=== PATIENT | male | born 1975 | race African-American/Black ===

== ENCOUNTER 2020-02-24 06:51 | Outpatient (RCR) | payer OTHER, SELFPAY ==
[2020-02-24 07:26] LABS: COVID-19 Test Negative (Negative)
[2020-03-09 07:18] LABS: IDNOW Serial# 55D5AD1C
[2020-03-09 07:19] LABS: COVID-19 Test Negative (Negative)
[2020-03-16 07:11] LABS: COVID-19 Test Negative (Negative)
[2020-04-02 13:17] LABS: SARS-COV-2 PCR UMBRL Not Detected
[2020-04-08 12:21] LABS: SARS-COV-2 PCR UMBRL Not Detected
[2020-04-15 10:20] LABS: SARS-COV-2 PCR UMBRL Not Detected
[2020-04-28 09:46] LABS: SARS-COV-2 PCR UMBRL NOT DETECTED
[2020-05-02 09:55] LABS: SARS-COV-2 PCR UMBRL NEGATIVE
== END 2020-02-24 06:52 | disposition home or self-care (01) ==
LOC: HO.EMPCOV 06:51
PROVIDERS: Visit Provider Internal Medicine
DX: Z20.828 Contact with and (suspected) exposure to other viral communicable diseases (principal)
CPT/HCPCS: 36415; 87635; C9803; U0003

== ENCOUNTER 2020-03-02 06:47 | Outpatient (REF) | payer OTHER, SELFPAY ==
[2020-03-02 07:41] LABS: COVID-19 Test Negative (Negative); IDNOW Serial# 55D5AD1C
== END 2020-03-02 06:48 | disposition home or self-care (01) ==
LOC: HO.EMPCOV 06:47
PROVIDERS: Visit Provider Internal Medicine
DX: Z20.828 Contact with and (suspected) exposure to other viral communicable diseases (principal)
CPT/HCPCS: 87635; C9803

== ENCOUNTER 2021-01-06 07:18 | Outpatient (REF) | payer OTHER, SELFPAY ==
[2021-01-06 07:49] LABS: MANUAL DIFF FLAG NO
[2021-01-06 07:58] LABS: Basophils Percent Auto 0.4 % (0-2); Eosinophils Absolute Auto 0.3 X10*3/uL (0.0-0.4); Eosinophils Percent Auto 4.1 % (0-4); Hematocrit 39.6 % (42-52); Hemoglobin 13.1 g/dl (14.0-18.0); Imm Gran Abs Auto 0.02 X10*3/uL (0.00-0.03); Imm Gran Pct Auto 0.3 % (0.0-0.4); Lymphocytes Absolute Auto 2.7 X10*3/uL (1.2-4.9); Lymphocytes Percent Auto 38.8 % (20-40); Mean Corpuscular HGB Conc 33.1 g/dl (31.0-36.0); Mean Corpuscular Hemoglobin 28.9 pg (27.0-33.0); Mean Corpuscular Volume 87.2 fL (80-98); Mean Platelet Volume 10.5 fL (9.4-12.4); Monocytes Absolute Auto 0.4 X10*3/uL (0.1-1.2); Monocytes Percent Auto 5.4 % (2-11); Neutrophils Absolute Auto 3.5 X10*3/uL (2.0-8.3); Platelet Count 246 X10*3/uL (160-400); Red Blood Count 4.54 X10*6/uL (4.60-5.80); Red Cell Distribution Width 12.7 % (11.0-16.0); White Blood Count 6.9 X10*3/uL (4.8-10.8)
[2021-01-06 08:17] LABS: Alanine Aminotransferase 22 U/L (0-40); Albumin Level 4.2 g/dL (3.5-5.0); Alkaline Phosphatase 71 U/L (39-117); Anion Gap 10 (12-20); Aspartate Amino Transferase 26 U/L (5-37); Bilirubin Direct 0.2 mg/dL (0.0-0.5); Bilirubin Total 0.4 mg/dL (0.0-1.0); Blood Urea Nitrogen 20 mg/dL (9-16); Carbon Dioxide 30 mmol/L (22-29); Chloride 104 mmol/L (96-108); Cholesterol 149 mg/dL; Estimated Glomerular Filt Rate > 60; Glucose Fasting 90 mg/dL (60-99); HDL Cholesterol 35 mg/dL; LDL Cholesterol Calculated 104 mg/dl; Sodium 140 mmol/L (135-145); Triglycerides 52 mg/dL
== END 2021-01-06 07:19 | disposition home or self-care (01) ==
LOC: HO.LAB 07:18
PROVIDERS: PCP Internal Medicine; Visit Provider Internal Medicine
DX: Z00.00 Encounter for general adult medical examination without abnormal findings (principal); E78.00 Pure hypercholesterolemia, unspecified; R53.83 Other fatigue
CPT/HCPCS: 36415; 80051; 80061; 80076; 82565; 82947; 84520; 85025

== ENCOUNTER 2021-03-19 12:40 | Outpatient (REF) | payer OTHER, SELFPAY ==
[2021-03-19 13:22] LABS: COVID-19 Test Negative (Negative)
== END 2021-03-19 12:41 | disposition home or self-care (01) ==
LOC: HO.ED 12:40
PROVIDERS: Visit Provider Internal Medicine
DX: Z20.822 Contact with and (suspected) exposure to COVID-19 (principal)
CPT/HCPCS: 36415; 87635

== ENCOUNTER 2022-10-03 15:40 | Outpatient (REF) | payer OTHER, SELFPAY ==
--- NOTE | ~2022-10-03 | XR_ITS ---
EXAMINATION: XR SHOULDER, LEFT CLINICAL INFORMATION: Pain decreased range of motion COMPARISON: None available. TECHNIQUE: AP external rotation, Grashey, scapular Y, and axillary views of the left shoulder. FINDINGS: The bones and soft tissues are normal. No fracture. Glenohumeral and acromioclavicular alignment is anatomic with normal joint space. No abnormal soft tissue calcifications. XR/XR shoulder LT min 2V IMPRESSION: Normal left shoulder.
== END 2022-10-03 15:41 | disposition home or self-care (01) ==
LOC: HO.XRAY 15:40
PROVIDERS: PCP Internal Medicine; Visit Provider Internal Medicine
DX: M25.512 Pain in left shoulder (principal)
CPT/HCPCS: 73030

== ENCOUNTER 2023-01-12 10:05 | Outpatient (REF) | payer OTHER, SELFPAY ==
[2023-01-12 10:34] LABS: MANUAL DIFF FLAG NO
[2023-01-12 11:02] LABS: Basophils Absolute Auto 0.1 X10*3/uL (0.0-0.2); Basophils Percent Auto 0.7 % (0-2); Eosinophils Absolute Auto 0.2 X10*3/uL (0.0-0.4); Eosinophils Percent Auto 2.9 % (0-4); Hemoglobin 15.6 g/dl (14.0-18.0); Imm Gran Abs Auto 0.03 X10*3/uL (0.00-0.03); Imm Gran Pct Auto 0.4 % (0.0-0.4); Lymphocytes Absolute Auto 2.4 X10*3/uL (1.2-4.9); Lymphocytes Percent Auto 33.6 % (20-40); Mean Corpuscular HGB Conc 32.5 g/dl (31.0-36.0); Mean Corpuscular Hemoglobin 28.9 pg (27.0-33.0); Mean Corpuscular Volume 89.1 fL (80.0-98.0); Mean Platelet Volume 10.3 fL (9.4-12.4); Monocytes Absolute Auto 0.4 X10*3/uL (0.1-1.2); Monocytes Percent Auto 5.9 % (2-11); Neutrophils Percent Auto 56.5 % (45-73); Platelet Count 269 X10*3/uL (160-400); Red Blood Count 5.39 X10*6/uL (4.60-5.80); Red Cell Distribution Width 12.4 % (11.0-16.0); White Blood Count 7.2 X10*3/uL (4.8-10.8)
[2023-01-12 11:25] LABS: Alanine Aminotransferase 14 U/L (0-40); Albumin Level 4.4 g/dL (3.5-5.0); Alkaline Phosphatase 81 U/L (39-117); Anion Gap 17 (12-20); Aspartate Amino Transferase 19 U/L (5-37); Bilirubin Total 0.5 mg/dL (0.0-1.0); Blood Urea Nitrogen 18 mg/dL (9-16); Calcium 10.2 mg/dL (8.4-10.2); Carbon Dioxide 26 mmol/L (22-29); Chloride 102 mmol/L (96-108); Estimated Glomerular Filt Rate > 60; Glucose Fasting 89 mg/dL (60-99); Potassium 4.3 mmol/L (3.3-5.1); Sodium 141 mmol/L (135-145)
== END 2023-01-12 10:06 | disposition home or self-care (01) ==
LOC: HO.LAB 10:05
PROVIDERS: PCP Internal Medicine; Visit Provider Internal Medicine
DX: R53.83 Other fatigue (principal); D64.9 Anemia, unspecified
CPT/HCPCS: 36415; 80053; 85025

== ENCOUNTER 2023-01-17 09:19 | Outpatient (AMB) | payer OTHER, SELFPAY ==
--- NOTE | 2023-01-17 09:27 | MHC.OFFVIS ---
Intake Vital Signs 01/17/23 09:29 Height 6 ft Weight 315 lb 4.176 oz BMI 42.8 BP 135/74 Blood Pressure Location Lt brachial Position Sitting Pulse 61 Intake Visit Reasons: Rectal bleeding Intake Note: Doug presents in the office as a new patient for Rectal Bleeding. CC: He states that he is here today for Rectal Bleeding. No irregular bowel movements - he states that he is very regulat and no pains in the stomach. He states it was bright red but it has subsided. It went on for 1-2 days and then it stopped and happened again 3 days later and then it stopped. Allergies amoxicillin [AMOXICILLIN] Allergy (Unknown, Unverified 01/17/23 09:30) UNKNOWN Penicillins [PENICILLINS] Allergy (Unknown, Unverified 01/17/23 09:30) UNKNOWN shellfish Allergy (Severe, Uncoded 01/17/23 09:30) anaphylaxis SHELLFISH Allergy (Unknown, Uncoded 01/17/23 09:30) UNKNOWN HPI HPI Comments History of Present Illness Details This is a 47y.o M here for rectal bleeding. Reports having an episode lasting a few days almost 2 weeks ago. Was noticing scant fresh blood on wiping. Does not report hard stool or straining. No abd or rectal pain. Stool itself was formed and brown. No baseline diarrhea. Deadlifts upto 300lbs. No hx of anal trauma. Has not recurred since. Had blood work done which does not show anemia. No fam hx of CRC in FDRs. [facility], [facility] Social History (Updated 01/17/23 @ 09:30 by TRACEY Rico) Alcohol intake: current Alcohol intake frequency: does not drink Patient Tobacco Use Status: Never used Tobacco Use of substances other than those prescribed or required for medical reasons: No Review of Systems Const All systems reviewed & are unremarkable except as noted in HPI and below Physical Exam Vital Signs: Last Vital Signs Pulse 61 01/17/23 09:29 BP 135/74 01/17/23 09:29 BMI result Body Mass Index 42.8 Gen appear: NAD HEENT: nonicteric, no cervical lymphadenopathy Chest: CTA CVS: Regular S1/S2 Abd: soft, nontender, nondistended, bowel sounds + Rectal: Martha Pena MA present to shoe stainer. No ext hemorrhoids or tags noted. Large internal hemorrhoids on digital exam. No blood on gloved finger. Ext: no peripheral edema Neuro: A/Ox3, noted to move all extremities spontaneously Psych: interacting appropriately Assessment & Plan Assessment & Plan (1) Bright red rectal bleeding: Code(s): K62.5 - Hemorrhage of anus and rectum (2) Internal hemorrhoid: Code(s): K64.8 - Other hemorrhoids Plan Presentation consistent with rectal outlet bleeding which was self limiting. Likely 2/2 internal hemorrhoids based on exam today. Plan: - Increase fiber intake - Avoid constipation and straining. Can take miralax PRN - Sitz baths - Avoiding lifting heavy weights - Topical lidocaine + hydrocort cream NH at bedtime x 10-14 days - Since due for a colo anyway due to age, will set that up as well on elective basis. Split PEG prep instructions reviewed. Follow up after colo as needed. Medications: New peg 3350-electrolytes 236-22.74-6.74 -5.86 gram (Golytely) as per split prep instructions, until fecal effluent is clear 240 mL PO Q10M 4,000 mL 0RF colonoscopy lidocaine HCl-hydrocortison ac 3-0.5 % 1 appl NH BEDTIME 14 days 14 grams 0RF Coding Level of Care Code New Pt Level 4 (91590) Diagnoses Bright red rectal bleeding K62.5 Internal hemorrhoid K64.8
[2023-01-17 09:29] VITALS: BP 135/74; PULSE 61; BMI 42.8
== END 2023-01-17 11:37 | disposition home or self-care (01) ==
PROVIDERS: PCP Internal Medicine; Visit Provider Internal Medicine
DX: K62.5 Hemorrhage of anus and rectum (principal); K64.8 Other hemorrhoids
CPT/HCPCS: 99204

== ENCOUNTER → 2023-01-17 09:19 | Outpatient (BNVA) | payer OTHER, SELFPAY | PROVIDERS: PCP Internal Medicine; Visit Provider Internal Medicine ==

== ENCOUNTER 2023-07-10 07:44 | Day surgery (SDC) | payer OTHER, SELFPAY ==
[2023-07-10 08:26] VITALS: BMI 45.7
[2023-07-10 08:56] VITALS: BP 153/61; PULSE 77; RESP 18; TEMP 36.2; O2SAT 97
[2023-07-10] MEDS: Lactated Ringers 1,000 ML 50 ML IVCONT (09:00)
--- NOTE | 2023-07-10 09:05 | HO.ANESPROP2 ---
HPI - Anesthesia Eval Consult details Narrative: 47 yo male patient for Colonoscopy PMFSH Active Problems Active Problems: All Active Problems (Updated 07/10/23 @ 09:07 by Janis Fontenot MD) Internal hemorrhoid (Acute) Bright red rectal bleeding (Acute) Increased BMI 45.7 RAISA- unable to tolerate CPAP Family History Family history of problems with anesthesia: No Surgical History History of Problems with Anesthesia: No Social History Social History Alcohol intake: current Alcohol intake frequency: does not drink Patient Tobacco Use Status: Never used Tobacco Use of substances other than those prescribed or required for medical reasons: No Are you DNR?: No Advance Directives: No Advance Directives Information Provided: Yes Meds Allergies Allergy/AdvReac Type Severity Reaction Status Date / Time amoxicillin [AMOXICILLIN] Allergy Unknown UNKNOWN Verified 07/10/23 08:58 Penicillins [PENICILLINS] Allergy Unknown UNKNOWN Verified 07/10/23 08:58 shellfish Allergy Severe anaphylaxis Uncoded 01/17/23 09:30 SHELLFISH Allergy Unknown UNKNOWN Uncoded 01/17/23 09:30 Active Medications: Current Medications Lactated Ringer's (Lr) 1,000 mls @ 50 mls/hr IVCONT .Q20H COOKIE Home Medications Medication Instructions Recorded Confirmed Last Taken Type naproxen 500 mg tablet 500 mg PO BID PRN Pain 07/10/23 07/10/23 Unknown History Exam Height,Weight and Vital Signs: Height 6 ft Weight 152.861 kg Last Vital Signs Temp 97.2 F 07/10/23 08:56 Pulse 77 07/10/23 08:56 Resp 18 07/10/23 08:56 BP 153/61 H 07/10/23 08:56 Pulse Ox 97 07/10/23 08:56 O2 Del Method Room Air 07/10/23 08:56 Airway Mallampati Class: II TM Dist: >3cm Neck ROM: Full Loose/Missing/Broken Teeth: Yes (Broken tooth top left back. Missing teeth back. Denies loose teeth) Heart: RRR Lungs: CTAB Assessment and Plan Assessment Anesthesia Assessment: Anesthesia Plan Discussed Final Anesthetic Review Family History of Problems with Anesthesia: No History of Problems with Anesthesia: No NPO: Yes ASA Class: III Final Preanesthetic Review: No Changes in Pt Med Stat, Meds/Allgs Chart Reviewed, Consent Obtained/Reviewed and Anes Risks/Benef Reviewed Patient Risk: Intermediate Procedure Risk: Low Assessment/Block/Sedation in SS: Assess/Block/Sedation-SS Anesthetic Plan Anesthetic Plan: GA, MAC: and TIVA Disposition: Standard PACU
--- NOTE | 2023-07-10 09:18 | MHC.SHP ---
Pre-Procedural Eval Section A - 24 Hr Update-Section A only Date of Service: 07/10/23 Section B - Complete if H&P > 30 days Chief Complaint: Hemorrhage of anus and rectum Relevant Family History (Specify if Yes): No Relevant Social History: None Present Medications: None Medical History: No relevant PMH History of Previous Operations: No relevant previous surgery Allergies: Allergies Allergy/AdvReac Type Severity Reaction Status Date / Time amoxicillin [AMOXICILLIN] Allergy Unknown UNKNOWN Verified 07/10/23 08:58 Penicillins [PENICILLINS] Allergy Unknown UNKNOWN Verified 07/10/23 08:58 shellfish Allergy Severe anaphylaxis Uncoded 01/17/23 09:30 SHELLFISH Allergy Unknown UNKNOWN Uncoded 01/17/23 09:30 Review of Systems Review of Systems Comment: 10 point ROS negative Exam Exam Comment: Gen appear: No acute distress HEENT: no icterus Chest: No overt resp distress Abd: soft, nontender, nondistended Psych: Stable affect, answering questions appropriately Neuro: A/Ox3 noted to move all extremities spontaneously Ext: no peripheral edema Plan Diagnosis/Plan: Unchanged I have reviewed the history and physical and performed a pertinent physical examination on my patient. No changes have occurred unless specified. Time Spent With Patient Time: Total time managing care of this patient today ____ minutes.
--- NOTE | 2023-07-10 09:19 | P.OP_ITS ---
Operative Note Operative Note Date of Service: 07/10/23 Narrative: Procedure: Colonoscopy Indication: Rectal bleeding Endoscopist: Geri Christianson MD Anesthesia Provider: Dr Pedro Anesthesia type: MAC Instrument: Olympus [id number]-H190L Consent: Indication, risks vs benefits, and alternatives were discussed with the patient who gave written informed consent to proceed. EKG, pulse, pulse oximetry and blood pressure were monitored throughout the procedure. Please see anesthesia flowsheet. Procedure: The patient was brought to the procedure room and placed in the left lateral decubitus position. IV medications were administered by the anesthesia provider in attendance. A digital rectal exam was performed which was abnormal due to finding of hemorrhoids. A distal attachment cap was affixed to the tip of the scope and the colonoscope was then inserted through the anus and advanced through the colon to the hepatic flexure. Mucosa was carefully examined under high definition white light as the instrument was slowly withdrawn in a retrograde panoramic fashion. Retroflexion was performed in rectum. The procedure was difficult due to significant looping pt's body habitus precluding adequate pressure. There were no immediate obvious complications. The quality of the prep was BBPS: N/A+2+2 = incomplete Limitations: Incomplete colonoscopy Findings: Mucosa: Flat carpeting villous-appearing mucosa was noted from 43 cm to 50 cm. Cold forceps biopsies were taken for histology. Protruding lesions: * Large internal hemorrhoids without stigmata of recent bleeding. Impression: 1. Incomplete colo 2. Abnormal mucosa in descending colon 3. External and internal hemorrhoids Recommendations: - Follow path results - Depending on results may suggest CT colonography vs repeating colonoscopy with adult scope and ColoWrap - may need to start prone if airway allows.
[2023-07-10 10:20] VITALS: BP 134/68; PULSE 65; RESP 16; TEMP 36.1; O2SAT 98
[2023-07-10 10:25] VITALS: BP 136/63; PULSE 61; RESP 18; O2SAT 97
[2023-07-10 10:30] VITALS: BP 149/59; PULSE 66; RESP 18; O2SAT 97
[2023-07-10 10:35] VITALS: BP 124/65; PULSE 62; RESP 18; TEMP 36.4; O2SAT 97
== END 2023-07-10 11:27 | disposition home or self-care (01) ==
PROVIDERS: PCP Internal Medicine; Visit Provider Internal Medicine
PROC: 0DJD8ZZ Inspection of Lower Intestinal Tract, Via Natural or Artificial Opening Endoscopic (ICD-10-PCS; CPT 45378; principal; 2023-07-10 09:20)
DX: K62.5 Hemorrhage of anus and rectum (principal); K63.89 Other specified diseases of intestine; K56.2 Volvulus; K64.8 Other hemorrhoids; K64.4 Residual hemorrhoidal skin tags; G47.33 Obstructive sleep apnea (adult) (pediatric); Z79.1 Long term (current) use of non-steroidal anti-inflammatories (NSAID); Z88.0 Allergy status to penicillin; Z88.1 Allergy status to other antibiotic agents
CPT/HCPCS: 45380; 88305; J2250; J2704

== ENCOUNTER → 2023-07-10 07:44 | Outpatient (BNV) | payer OTHER, SELFPAY | PROVIDERS: PCP Internal Medicine; Visit Provider Internal Medicine | DX: K62.5 Hemorrhage of anus and rectum (principal) | CPT/HCPCS: 45380 ==

== ENCOUNTER 2023-07-27 12:29 | Outpatient (AMB) | payer OTHER, SELFPAY ==
--- NOTE | 2023-07-27 12:30 | MHC.OFFVIS ---
Intake Intake Visit Reasons: s/p colon Intake Note: Doug presents as a telehealth for a follow up colonoscopy. CC: No concerns since the [facility] [employer] Required: No Allergies amoxicillin [AMOXICILLIN] Allergy (Unknown, Verified 07/27/23 12:30) UNKNOWN Penicillins [PENICILLINS] Allergy (Unknown, Verified 07/27/23 12:30) UNKNOWN shellfish Allergy (Severe, Uncoded 07/27/23 12:30) anaphylaxis SHELLFISH Allergy (Unknown, Uncoded 07/27/23 12:30) UNKNOWN HPI HPI Comments History of Present Illness Details This is a 47-year-old gentleman who was seen in our office for intermittent per rectal bleeding, underwent a colonoscopy last month He is here for post colonoscopy results. [place] 07/10/2023: 1. Incomplete colo 2. Abnormal mucosa in descending colon 3. External and internal hemorrhoids Recommendations: - Follow path results - Depending on results may suggest CT colonography vs repeating colonoscopy with adult scope and ColoWrap - may need to start prone if airway allows. Path: Diagnosis Colon, abnormal mucosa from 42-50 cm, biopsy: Colonic mucosa with mild crypt distortion suggesting prior mucosal injury; no colitis, granulomas or dysplasia 07/27/23: Patient here as a video tele visit. Reviewed with the patient that colonoscopy could not be completed and cecum could not be evaluated as we could not go beyond the hepatic flexure. Biopsies from the normal-appearing mucosa were benign, without any underlying chronic colitis findings. [facility] Surgical History (Updated 07/27/23 @ 12:31 by TRACEY Rico) Hx of colonoscopy Social History Alcohol intake: current Alcohol intake frequency: does not drink Patient Tobacco Use Status: Never used Tobacco Review of Systems Const All systems reviewed & are unremarkable except as noted in HPI and below Assessment & Plan Assessment & Plan (1) Procedure and treatment not carried out, unspecified reason: Code(s): Z53.9 - Procedure and treatment not carried out, unspecified reason (2) Internal hemorrhoid: Code(s): K64.8 - Other hemorrhoids Plan As above, colonoscopy could not be completed due to significant looping of the scope. Reviewed both the options with the patient, that is attempting another colonoscopy with different equipment vs CT colonography for screening. To recall, rectal bleeding has resolved, and was likely due to internal hemorrhoids. Patient opts for CT colonography. Order placed, and prep sent to his pharmacy. We will request the Radiology Department to give him appointment time as well as instructions for the procedure. Follow-up after colonography Orders: Orders CT colonography Today Z53.9 - Procedure and treatment not carried out, unspecified reason Medications: New peg 3350-electrolytes 236-22.74-6.74 -5.86 gram (Golytely) as per split prep instructions, until fecal effluent is clear 240 mL PO Q10M 4,000 mL 0RF colonoscopy Telehealth Telehealth Location of provider rendering services: practice address Location of patient: address on file Patient Identification confirmed using: Name, : Yes Telehealth method: video Patient verbally consented to treatment: Yes Patient verbally consented to billing insurance company: Yes Patient informed of any privacy concerns related to visit: Yes Minutes spent on Phone/Video with Pt.: 8 Coding Level of Care Code Tele Est Pt Level 3 (93751) Diagnoses Procedure and treatment not carried out, unspecified reason Z53.9 Internal hemorrhoid K64.8
== END 2023-07-27 13:21 | disposition home or self-care (01) ==
LOC: HO.HGI 12:30
PROVIDERS: PCP Internal Medicine; Visit Provider Internal Medicine
DX: Z53.9 Procedure and treatment not carried out, unspecified reason (principal); K64.8 Other hemorrhoids
CPT/HCPCS: 99213

== ENCOUNTER → 2023-07-27 12:29 | Outpatient (BNVA) | payer OTHER, SELFPAY | PROVIDERS: PCP Internal Medicine; Visit Provider Internal Medicine ==

== ENCOUNTER 2023-09-25 09:04 | Outpatient (REF) | payer OTHER, SELFPAY ==
--- NOTE | ~2023-09-25 | CT_ITS ---
EXAMINATION: CT COLONOGRAPHY CLINICAL INFORMATION: Incomplete colonoscopy COMPARISON: 05/13/2015 TECHNIQUE: Bowel preparation: Excellent. Stool tagging with Gastrografin and barium: Excellent. Colonic distention: CO2 mechanical insufflator used via enema tube with suboptimal distention. Acquisition: Low dose imaging targeted to colonic was performed in the supine and prone positions. Procedure: The procedure was well tolerated. Review: The acquired images were reviewed in axial, coronal and sagittal planes. Additional 3-D fly through images were reviewed at an independent workstation. This CT examination was performed using dose optimization techniques as appropriate, variously including the following: *Automated exposure control *Adjustment of mA and/or kV according to patient size (this includes techniques or standardized protocols for targeted exams where dose is matched to indication/reason for exam; i.e. extremities or head) *Use of iterative reconstruction technique DLP: 843 mGy-cm FINDINGS: Colonic findings: Colon is redundant and tortuous, specifically the redundant sigmoid colon there is some adherent stool in the proximal most redundant sigmoid colon with CT density more suggestive of stool rather than a true polyp. The rectum and ascending colon are significantly decompressed on the supine imaging with residual fluid and stool seen in the descending colon limiting assessment of these areas in the supine images. These areas are better distended on the prone images although there is persistent fluid in the dependent aspect of the descending colon limiting assessment of this region. Normal-appearing appendix. Visualized small bowel unremarkable. Non-colonic findings: Gallstones within the dependent aspect of the otherwise unremarkable gallbladder. Nonobstructing 1.2 cm calculi in the mid to lower pole of the left kidney. Mild vascular calcification is aortoiliac system. CT/CT colonography IMPRESSION: Redundant tortuous colon. There is some adherent stool in the proximal most redundant sigmoid colon with CT density more suggestive of a hearing stool rather than a true polyps. The descending colon and rectum are significantly decompressed on the supine imaging with residual fluid and stool seen in the dependent aspect of the descending colon limiting assessment of these areas in the supine images as well. I do not appreciate any discrete CT mass lesion or significant colonic polyp on these images however.
== END 2023-09-25 09:05 | disposition home or self-care (01) ==
LOC: HO.CT 09:04
PROVIDERS: PCP Internal Medicine; Visit Provider Internal Medicine
DX: Z53.9 Procedure and treatment not carried out, unspecified reason (principal)
CPT/HCPCS: 74261

== ENCOUNTER 2023-11-23 10:50 | Outpatient (REF) | payer OTHER, SELFPAY ==
[2023-11-23 11:03] LABS: MANUAL DIFF FLAG NO
[2023-11-23 11:37] LABS: Basophils Absolute Auto 0.1 X10*3/uL (0.0-0.2); Basophils Percent Auto 0.7 % (0-2); Eosinophils Absolute Auto 0.3 X10*3/uL (0.0-0.4); Eosinophils Percent Auto 3.6 % (0-4); Hematocrit 44.3 % (42.0-52.0); Hemoglobin 14.8 g/dl (14.0-18.0); Imm Gran Abs Auto 0.02 X10*3/uL (0.00-0.03); Imm Gran Pct Auto 0.3 % (0.0-0.4); Lymphocytes Absolute Auto 2.4 X10*3/uL (1.2-4.9); Lymphocytes Percent Auto 35.5 % (20-40); Mean Corpuscular HGB Conc 33.4 g/dl (31.0-36.0); Mean Corpuscular Hemoglobin 29.3 pg (27.0-33.0); Mean Corpuscular Volume 87.7 fL (80.0-98.0); Mean Platelet Volume 10.6 fL (9.4-12.4); Monocytes Absolute Auto 0.4 X10*3/uL (0.1-1.2); Monocytes Percent Auto 5.8 % (2-11); Neutrophils Absolute Auto 3.7 x10*3/uL (2.0-8.3); Neutrophils Percent Auto 54.1 % (45-73); Platelet Count 250 X10*3/uL (160-400); Red Blood Count 5.05 X10*6/uL (4.60-5.80); Red Cell Distribution Width 13.1 % (11.0-16.0); White Blood Count 6.9 X10*3/uL (4.8-10.8)
[2023-11-23 11:57] LABS: Alanine Aminotransferase 21 U/L (0-40); Albumin Level 4.2 g/dL (3.5-5.0); Alkaline Phosphatase 86 U/L (39-117); Anion Gap 9 (12-20); Aspartate Amino Transferase 27 U/L (5-37); Bilirubin Total 0.6 mg/dL (0.0-1.0); Blood Urea Nitrogen 22 mg/dL (9-16); Calcium 9.8 mg/dL (8.4-10.2); Carbon Dioxide 28 mmol/L (22-29); Chloride 107 mmol/L (96-108); Cholesterol 151 mg/dL (<200); Estimated Glomerular Filt Rate > 60; Glucose Fasting 92 mg/dL (60-99); HDL Cholesterol 38 mg/dL (>40); LDL Cholesterol Calculated 103 mg/dL (<100); Potassium 4.2 mmol/L (3.3-5.1); Sodium 140 mmol/L (135-145); Total Protein 7.3 g/dL (6.5-8.0); Triglycerides 52 mg/dL (<150)
== END 2023-11-23 10:51 | disposition home or self-care (01) ==
LOC: HO.LAB 10:50
PROVIDERS: PCP Internal Medicine; Visit Provider Internal Medicine
DX: R53.83 Other fatigue (principal); E78.5 Hyperlipidemia, unspecified
CPT/HCPCS: 36415; 80053; 80061; 85025